=== PATIENT | male | born 1940 | race Caucasian/White ===

== ENCOUNTER → 2018-02-04 | Outpatient (CLI) | payer OTHER ==
[~2018-02-04] MED LIST: DOXA1TAB88 PO; LORA10TA44 PO; MULTTAB PO; PRED-301 PO; RANI150T3 PO; SYN50 PO; TEST1DIS TD
== END | disposition home or self-care (01) ==
LOC: C.MAMM 12:45
PROVIDERS: ATTEND Internal Medicine Endocrinology, Diabetes & Metabolism
DX: M85.852 Other specified disorders of bone density and structure, left thigh (principal); E23.0 Hypopituitarism

== ENCOUNTER 2025-04-20 07:54 | Inpatient (IN) ==
[2025-04-20 08:23] LABS: Hematocrit (blood only) 44.0 % (42.0-52.0); Hemoglobin 14.9 g/dl (14.0-18.0); Immature Granulocytes # (auto) 0.23 K/uL (0.01-0.20); Immature Granulocytes % (auto) 2.3 %; Mean Corpuscular Hemoglobin 30.1 pg (25.0-34.0); Mean Corpuscular Volume 88.9 fL (80.0-100.0); Platelet Count 136 K/uL (130-400); RDW Standard Deviation 43.2 fL (36.4-46.3); Red Blood Count 4.95 M/uL (4.70-6.10); White Blood Count 10.14 K/ul (4.8-10.8)
--- NOTE | 2025-04-20 08:48 | XRay Report ---
XR chest 1V portable CLINICAL HISTORY: Sepsis COMPARISON STUDY: 07/27/2024 FINDINGS: Heart size and pulmonary vasculature are normal. No consolidation or pleural effusion. No p neumothorax. IMPRESSION: No acute findings. ACT 112: Negative or not required by law. Electronically signed by: Adriano Glass M.D. 04/20/2025 8:47 AM
[2025-04-20] MEDS: SODIUM CHLORIDE 0.9% 1,000 ML IV SCH ×2 (08:56→13:11)
[2025-04-20 08:58] LABS: Anion Gap 9.0 (3-11); Bilirubin,Total 2.2 mg/dl (0.2-1.0); Calcium 8.4 mg/dl (8.6-10.3); Carbon Dioxide 25.0 mmol/L (21-32); Chloride 98.0 mmol/L (98-107); Magnesium 1.8 mg/dl (1.7-2.4); Potassium 3.7 mmol/L (3.5-5.1); Sodium 132.0 mmol/L (136-145)
[2025-04-20 09:04] LABS: Alanine Aminotransferase 16.0 U/L (7-52); Alkaline Phosphatase 38.0 U/L (34-104); Blood Urea Nitrogen 16.0 mg/dl (6-23); Creatinine Clr Calc Pharmacy 41.5 ml/min; Glucose 80.0 mg/dl (70-99(Fasting)); Total Protein 5.6 gm/dl (6.0-8.3)
--- NOTE | 2025-04-20 09:10 | Emergency Department Note ---
Impression & Plan Weakness, Dehydration, Upper respiratory infection ED Provider Note NAME: ISABEL JONES AGE: 85 SEX: M : 1940 ARRIVES VIA: Ambulance INFORMANT: Patient, ED PROVIDER(S): Rah West MD CHIEF COMPLAINT: COVID-19, lethargy, confusion HPI: This is a 85-year-old male presenting for confusion, lethargy. Patient recent has positive for COVID-19 on Saturday. He started Paxlovid recently. He cannot tell me if he was prescribed this or has taken his 's. He has increasing confusion as per nursing report. Cannot provide much history at this time. ROS: Unable to obtain. PHYSICAL EXAMINATION: General: resting comfortably in no acute distress Head: Normocephalic and atraumatic Eyes: Normal inspection, extraocular muscles intact Ear, nose, throat: Normal external exam Neck: Normal range of motion Respiratory: lungs clear to auscultation bilaterally Cardiovascular: Regular rate/rhythm GI: soft, nontender, no guarding or rebound Extremities: nontender, moves all extremities Neuro: The patient awake and alert, not oriented. No focal deficits, symmetric faces Skin: Warm, dry, and intact MEDICAL DECISION MAKING: This is an 85-year-old male present for confusion and lethargy. He does not appear outwardly septic, no hypotension. Slight tachycardia initially noted. Will do basic blood work, urinalysis, fluid resuscitation. - Bloodwork is reviewed showing no significant leukocytosis, anemia, electrolyte or creatinine abnormality. Minimal hyponatremia noted. Otherwise no lactic acid elevation. Negative procalcitonin. -Chest Xray independently interpreted by me showing no pneumothorax, focal opacity, or pleural effusions. - Patient slightly more awake after fluids. Still confused however and significantly weak, unable to ambulate. Will admit the patient due to suspected dehydration, weakness due to COVID-19. Differential diagnosis: Dehydration, weakness, COVID-19, pneumonia, sepsis, UTI Independent History obtained from: Nurse Diagnostics interpreted by me: ECG: ECG independently interpreted by me with normal sinus rhythm, rate of 100, normal TN], normal QRS, normal QTc, no ST segment elevations consistent with STEMI criteria Cardiac Monitoring: An order was placed for continuous cardiac monitoring. The monitor shows a rate of 88 with sinus rhythm. 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) GERD (gastroesophageal reflux disease) (Chronic) Panhypopituitarism (Chronic) "benign pituitary cyst resected 1996" History of adenomatous polyp of colon (Chronic) Chronic kidney disease, stage 3 (Chronic) "serum creat 1.5, est GFR 47 02/24/14" Medical History CVA (cerebral vascular accident) Neuropathy In both feet Allergic rhinitis Macular drusen Right eye Esophagitis Diastolic dysfunction BPH (benign prostatic hyperplasia) Surgical History H/O vitrectomy History of surgical removal of pituitary gland Benign cyst S/P colonoscopy Family History Mother , 78yo Heart disease Related to "strept" infection CHF (congestive heart failure) Stroke Father , 82yo Colorectal cancer Brother Blindness of one eye Prostate cancer Brother Prostate cancer Daughter No problems noted. 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 How many Children do You have: 1 Feels Safe at Home: Yes Diet: regular caffeine: Yes (1 cup/day) during the past year weight has: remained stable Assistive Devices: Glasses Allergies Allergies Allergy/AdvReac Type Severity Reaction Status Date / Time eugenol Allergy Unknown unkn Verified 04/20/25 09:25 zinc oxide Allergy Unknown unkn Verified 04/20/25 09:25 Home Meds Home Medications Medication Instructions Recorded Confirmed calcium carbonate 500 mg PO DAILY PRN Acid Reflux 11/27/22 04/20/25 aspirin 81 mg tablet,delayed 81 mg PO BID PRN Pain 06/12/23 04/20/25 release loratadine 10 mg tablet 10 mg PO QAM PRN allergies 06/12/23 04/20/25 levothyroxine 100 mcg tablet 100 mcg PO QAM 02/12/24 04/20/25 testosterone 1 pump topical HS 03/14/24 04/20/25 cholecalciferol (vitamin D3) 50 2,000 unit PO DAILY 10/30/24 04/20/25 mcg (2,000 unit) capsule nirmatrelvir 150 mg (10)-ritonavir See Rx Instructions .Route .COMPLEX 04/20/25 04/20/25 100 mg (10) tablets in a dose pack (Paxlovid) Previous Rx's Medication Instructions Recorded prednisone 5 mg tablet 7.5 mg (1.5 x 5 mg) PO QAM #135 03/29/25 tabs Results & Data (ED) Vital Signs Vital Signs - 24 hr 04/20/25 08:14 04/20/25 08:30 04/20/25 08:38 Temperature 36.9 C Temperature Source Oral Pulse Rate 102 H 95 H 98 H Pulse Rate from SpO2 Sensor Respiratory Rate 18 22 Respiratory Effort / Characteristics Non-Labored Spontaneous Respiratory Depth Normal Respiratory Pattern Regular Blood Pressure 147/84 H 136/83 Blood Pressure Mean 105 114 Pulse Oximetry 96 95 Oxygen Delivery Method Room Air Room Air Sepsis Recent Fever Within 48 Hours Yes Sepsis New/Unexplained Change in Mental Status Yes Sepsis Action Taken by Nursing Physician Notified 04/20/25 09:00 04/20/25 09:06 04/20/25 09:17 Temperature Temperature Source Pulse Rate 96 H 90 91 H Pulse Rate from SpO2 Sensor Respiratory Rate 21 21 20 Respiratory Effort / Characteristics Respiratory Depth Respiratory Pattern Blood Pressure 139/80 135/102 H Blood Pressure Mean 105 109 Pulse Oximetry 96 97 Oxygen Delivery Method Room Air Sepsis Recent Fever Within 48 Hours Sepsis New/Unexplained Change in Mental Status Sepsis Action Taken by Nursing 04/20/25 09:30 04/20/25 09:45 Temperature Temperature Source Pulse Rate 99 H 88 Pulse Rate from SpO2 Sensor 88 Respiratory Rate 15 18 Respiratory Effort / Characteristics Respiratory Depth Respiratory Pattern Blood Pressure 133/77 135/83 Blood Pressure Mean 111 121 Pulse Oximetry 96 94 Oxygen Delivery Method Sepsis Recent Fever Within 48 Hours Sepsis New/Unexplained Change in Mental Status Sepsis Action Taken by Nursing Laboratory Data 04/20/25 08:06 04/20/25 08:06 Lab Results 04/20/25 04/20/25 04/20/25 Range/Units 08:06 08:10 08:55 WBC 10.14 (4.8-10.8) K/ul RBC 4.95 (4.70-6.10) M/uL Hgb 14.9 (14.0-18.0) g/dl Hct 44.0 (42.0-52.0) % MCV 88.9 (80.0-100.0) fL MCH 30.1 (25.0-34.0) pg MCHC 33.9 (32.0-36.0) g/dL RDW Std Deviation 43.2 (36.4-46.3) fL RDW Coeff of Dio 13.4 (11.5-14.5) % Plt Count 136 (130-400) K/uL MPV 9.5 (9.4-12.4) fL Immature Gran % (Auto) 2.3 % Neut % (Auto) 72.0 % Lymph % (Auto) 11.6 % Keith % (Auto) 11.5 % Eos % (Auto) 1.7 % Baso % (Auto) 0.9 % Neut # (Auto) 7.30 H (1.40-6.50) K/uL Lymph # (Auto) 1.18 L (1.20-3.40) K/uL Keith # (Auto) 1.17 H (0.11-0.59) K/uL Eos # (Auto) 0.17 (0.00-0.50) K/uL Baso # (Auto) 0.09 (0.00-0.20) K/uL Immature Gran # (Auto) 0.23 H (0.01-0.20) K/uL Sodium 132 L (136-145) mmol/L Potassium 3.7 (3.5-5.1) mmol/L Chloride 98 (98-107) mmol/L Carbon Dioxide 25 (21-32) mmol/L Anion Gap 9 (3-11) BUN 16 (6-23) mg/dl Creatinine 1.20 (0.6-1.4) mg/dl Est Cr Clr Drug Dosing 41.5 ml/min eGFR 59.26 BUN/Creatinine Ratio 13.3 (10-20) Glucose 80 (70-99(Fasting)) mg/dl POC Glucose 73 (70-99) mg/dl Lactate 1.6 (0.4-2.0) mmol/L Calcium 8.4 L (8.6-10.3) mg/dl Magnesium 1.8 (1.7-2.4) mg/dl Total Bilirubin 2.2 H (0.2-1.0) mg/dl Direct Bilirubin 0.4 H (0-0.2) mg/dl AST 21 (13-39) U/L ALT 16 (7-52) U/L Alkaline Phosphatase 38 (34-104) U/L Troponin I High Sens 7.4 (0-20) pg/ml Total Protein 5.6 L (6.0-8.3) gm/dl Albumin 3.3 L (3.4-5.0) gm/dl Procalcitonin 0.34 (0-0.5) ng/ml TSH < 0.010 L (0.300-4.500) uIu/ml Random Cortisol 4.81 mcg/dl Urine Color Urine Appearance (Clear) Urine pH (4.5-7.5) Ur Specific Landenberg (1.000-1.030) Urine Protein (Negative) Urine Glucose (UA) (Negative) Urine Ketones (Negative) Urine Blood (Negative) Urine Nitrite (Negative) Urine Bilirubin (Negative) Urine Urobilinogen (Negative) Ur Leukocyte Esterase (Negative) Urine Comment 04/20/25 Range/Units 09:24 WBC (4.8-10.8) K/ul RBC (4.70-6.10) M/uL Hgb (14.0-18.0) g/dl Hct (42.0-52.0) % MCV (80.0-100.0) fL MCH (25.0-34.0) pg MCHC (32.0-36.0) g/dL RDW Std Deviation (36.4-46.3) fL RDW Coeff of Dio (11.5-14.5) % Plt Count (130-400) K/uL MPV (9.4-12.4) fL Immature Gran % (Auto) % Neut % (Auto) % Lymph % (Auto) % Keith % (Auto) % Eos % (Auto) % Baso % (Auto) % Neut # (Auto) (1.40-6.50) K/uL Lymph # (Auto) (1.20-3.40) K/uL Keith # (Auto) (0.11-0.59) K/uL Eos # (Auto) (0.00-0.50) K/uL Baso # (Auto) (0.00-0.20) K/uL Immature Gran # (Auto) (0.01-0.20) K/uL Sodium (136-145) mmol/L Potassium (3.5-5.1) mmol/L Chloride (98-107) mmol/L Carbon Dioxide (21-32) mmol/L Anion Gap (3-11) BUN (6-23) mg/dl Creatinine (0.6-1.4) mg/dl Est Cr Clr Drug Dosing ml/min eGFR BUN/Creatinine Ratio (10-20) Glucose (70-99(Fasting)) mg/dl POC Glucose (70-99) mg/dl Lactate (0.4-2.0) mmol/L Calcium (8.6-10.3) mg/dl Magnesium (1.7-2.4) mg/dl Total Bilirubin (0.2-1.0) mg/dl Direct Bilirubin (0-0.2) mg/dl AST (13-39) U/L ALT (7-52) U/L Alkaline Phosphatase (34-104) U/L Troponin I High Sens (0-20) pg/ml Total Protein (6.0-8.3) gm/dl Albumin (3.4-5.0) gm/dl Procalcitonin (0-0.5) ng/ml TSH (0.300-4.500) uIu/ml Random Cortisol mcg/dl Urine Color Yellow Urine Appearance Clear (Clear) Urine pH 6.0 (4.5-7.5) Ur Specific Landenberg 1.016 (1.000-1.030) Urine Protein Negative (Negative) Urine Glucose (UA) Negative (Negative) Urine Ketones 2+ H (Negative) Urine Blood Negative (Negative) Urine Nitrite Negative (Negative) Urine Bilirubin Negative (Negative) Urine Urobilinogen Negative (Negative) Ur Leukocyte Esterase Negative (Negative) Urine Comment Administered Medications Sodium Chloride (Nss) 1,000 mls @ 80 mls/hr IV .[id number] EDITH Stop: 04/21/25 12:29 Last Admin: 04/20/25 13:11 Dose: 80 mls/hr Documented By: mani Discontinued Medications Hydrocortisone Sodium Succinate (Hydrocortisone Sod Succinate 100 Mg/2 Ml Vial) 50 mg IV NOW STA Stop: 04/20/25 12:05 Last Admin: 04/20/25 13:11 Dose: 50 mg Documented By: mani Sodium Chloride (Nss) 1,000 mls @ 999 mls/hr IV .Q1H1M EDITH Stop: 04/20/25 09:15 Last Infusion: 04/20/25 10:32 Dose: Infused Documented By: mani Admin: 04/20/25 08:56 Dose: 999 mls/hr Documented By: ABIGAIL Imaging Data Radiologist's Impression: Chest X-Ray 04/20/25 08:09 XR chest 1V portable CLINICAL HISTORY: Sepsis COMPARISON STUDY: 07/27/2024 FINDINGS: Heart size and pulmonary vasculature are normal. No consolidation or pleural effusion. No pneumothorax. IMPRESSION: No acute findings. ACT 112: Negative or not required by law. Electronically signed by: Adriano Glass M.D. 04/20/2025 8:47 AM Discharge Plan Visit Data Chief Complaint: Illness ED Provider: Rah West Discharge Problem: Weakness, Dehydration, Upper respiratory infection Patient Disposition: Admitted As Inpatient Condition: Fair Discharge Instructions Interventions: ED Discharge Assessment Last Done: 04/20/25 14:07 Discharge Problem: Upper respiratory infection Qualifiers: URI type: unspecified URI Qualified Code(s): J06.9 - Acute upper respiratory infection, unspecified
[2025-04-20 09:55] LABS: Appearance Urine Clear (Clear); Glucose Urine UA Negative (Negative)
[2025-04-20 13:02] LABS: Thyroid Stimulating Hormone < 0.010 uIu/ml (0.300-4.500)
--- NOTE | 2025-04-20 13:06 | History & Physical Report ---
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 #Metabolic encephalopathy 2/2 covid, dehydration and adrenal insuff #Sars COV-2 positive (outpt home test on 04/18 +) #Adrenal insufficiency in setting of underlying illness and chronic pred therapy #Dehydration #Generalized weakness admit to medical stop oral paxlovid and start IV remdesivir given age hold oral prednisone and start stress dose steroid hydrocortisone 50mg IV q8, random cortisol at 8:06 a.m. was low at 4.81 gentle IVF can reassess need for further fluid tomorrow PT/OT ordered Head CT given encephalopathy #Hypothyroidism #PanHypopituitarism TSH < 0.01, free T4 w/in range - will need repeat testing when not ill in appox 2 weeks after discharge continue levothyroxine, testosterone and IV hydrocortisone #acute hyponatremia na 132, suspect in setting of volume completion IVF ongoing, bmp in am. #CKD-3 chronic, stable, cr at baseline 1.2, avoid nephrotoxic agents #Mild protein calorie malnutrition consult filer helper #DVT ppx: SQ Lovenox DNR/DNI Dispo: admit to medical PCP: Jerry Pt was seen by Dr. Mehta and collaborated with myself, please refer to his addendum I spent a total of 50 minutes coordinating, documenting and providing care for this patient excluding time spent in the performance of separately billed services or time spent by another provider/QHP. History of Present Illness Chief Complaint: lethargy and confusion x 1 day. Primary Care Provider: Rodolfo Edwards MD This is an 85-year-old male who has significant past medical history of pa nhypopituitarism on chronic prednisone therapy, hypothyroidism, CKD stage III, history of prostate cancer, MGUS who presents today due to worsening lethargy and confusion x 1 day. Of significance patient's tested positive for for COVID and was started on Paxlovid. Patient then developed symptoms of headache, cough, decreased appetite and he tested positive on a home test on 04/18. His PCP started Paxlovid as well and was administered 3 doses. History obtained from ED provider, external chart review and attending physician discussion with patient's . Hx unobtainable from patient due to confusion. Allergies Allergy/AdvReac Type Severity Reaction Status Date / Time eugenol Allergy Unknown unkn Verified 04/20/25 09:25 zinc oxide Allergy Unknown unkn Verified 04/20/25 09:25 Home Medications Medication Instructions Recorded Confirmed Type calcium carbonate 500 mg PO DAILY PRN Acid Reflux 11/27/22 04/20/25 History aspirin 81 mg tablet,delayed 81 mg PO BID PRN Pain 06/12/23 04/20/25 History release loratadine 10 mg tablet 10 mg PO QAM PRN allergies 06/12/23 04/20/25 History levothyroxine 100 mcg tablet 100 mcg PO QAM 02/12/24 04/20/25 History testosterone 1 pump topical HS 03/14/24 04/20/25 History cholecalciferol (vitamin D3) 50 2,000 unit PO DAILY 10/30/24 04/20/25 History mcg (2,000 unit) capsule prednisone 5 mg tablet 7.5 mg (1.5 x 5 mg) PO QAM #135 03/29/25 04/20/25 Rx tabs nirmatrelvir 150 mg (10)-ritonavir See Rx Instructions .Route .COMPLEX 04/20/25 04/20/25 History 100 mg (10) tablets in a dose pack (Paxlovid) 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) GERD (gastroesophageal reflux disease) (Chronic) Panhypopituitarism (Chronic) "benign pituitary cyst resected 1996" History of adenomatous polyp of colon (Chronic) Chronic kidney disease, stage 3 (Chronic) "serum creat 1.5, est GFR 47 02/24/14" Medical History CVA (cerebral vascular accident) Neuropathy In both feet Allergic rhinitis Macular drusen Right eye Esophagitis Diastolic dysfunction BPH (benign prostatic hyperplasia) Surgical History H/O vitrectomy History of surgical removal of pituitary gland Benign cyst S/P colonoscopy Family History Mother , 78yo Heart disease Related to "strept" infection CHF (congestive heart failure) Stroke Father , 82yo Colorectal cancer Brother Blindness of one eye Prostate cancer Brother Prostate cancer Daughter No problems noted. 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 Mehta addendum for physical exam findings. Results & Data Results & Data Vital Signs (Past 12 Hours) Vital Signs Temp Pulse Resp BP Pulse Ox O2 Del Method 04/20/25 09:45 88 18 135/83 94 04/20/25 09:30 99 H 15 133/77 96 04/20/25 09:17 91 H 20 135/102 H 97 04/20/25 09:06 90 21 96 Room Air 04/20/25 09:00 96 H 21 139/80 04/20/25 08:38 98 H 04/20/25 08:30 95 H 22 136/83 95 Room Air 04/20/25 08:14 36.9 C 102 H 18 147/84 H 96 Room Air Laboratory Results I have independently reviewed and interpreted patient's admitting labs including CBC, CMP, trop, lactate, tsh, random cortisol, urine, biofire Diagnostic Findings Chest X-Ray 04/20/25 08:09 XR chest 1V portable CLINICAL HISTORY: Sepsis COMPARISON STUDY: 07/27/2024 FINDINGS: Heart size and pulmonary vasculature are normal. No consolidation or pleural effusion. No pneumothorax. IMPRESSION: No acute findings. ACT 112: Negative or not required by law. Electronically signed by: Adriano Glass M.D. 04/20/2025 8:47 AM Medications Administered Medication List Discontinued Medications Sodium Chloride (Nss) 1,000 mls @ 999 mls/hr IV .Q1H1M EDITH Stop: 04/20/25 09:15 Last Infusion: 04/20/25 10:32 Dose: Infused Documented By: mani Admin: 04/20/25 08:56 Dose: 999 mls/hr Documented By: ABIGAIL ECG Additional Comments: I have independently reviewed and interpreted patient's admitting EKG which revealed: COVID-19 Results Results COVID-19 Adm Lab Results: RBC 4.94 M/uL (4.70-6.10) 04/21/25 WBC 7.94 K/ul (4.8-10.8) 04/21/25 Hgb 14.8 g/dl (14.0-18.0) 04/21/25 Hct 43.9 % (42.0-52.0) 04/21/25 Plt Count 165 K/uL (130-400) 04/21/25 Neutrophils (%) (Auto) 82.8 % 04/21/25 Lymphocytes (%) (Auto) 8.3 % 04/21/25 Monocytes # (Auto) 0.51 K/uL (0.11-0.59) 04/21/25 Eosinophils # (Auto) 0.02 K/uL (0.00-0.50) 04/21/25 Immature Granulocyte % (Auto) 1.8 % 04/21/25 Neutrophils # (Auto) 6.58 K/uL (1.40-6.50) H 04/21/25 Lymphocytes # (Auto) 0.66 K/uL (1.20-3.40) L 04/21/25 Monocytes # (Auto) 0.51 K/uL (0.11-0.59) 04/21/25 Eosinophils # (Auto) 0.02 K/uL (0.00-0.50) 04/21/25 Basophils # (Auto) 0.03 K/uL (0.00-0.20) 04/21/25 Immature Granulocyte # (Auto) 0.14 K/uL (0.01-0.20) 5 Na 132 mmol/L (136-145) L 04/20/25 K 3.7 mmol/L (3.5-5.1) 04/20/25 Cl 98 mmol/L (98-107) 04/20/25 CO2 25 mmol/L (21-32) 04/20/25 Anion Gap 9 (3-11) 04/20/25 BUN 16 mg/dl (6-23) 04/20/25 Creatinine 1.20 mg/dl (0.6-1.4) 04/20/25 BUN/Creatinine Ratio 13.3 (10-20) 04/20/25 Glucose Level 80 mg/dl (70-99(Fasting)) 04/20/25 Ca 8.4 mg/dl (8.6-10.3) L 04/20/25 Total Bilirubin 2.2 mg/dl (0.2-1.0) H 04/20/25 Direct Bilirubin 0.4 mg/dl (0-0.2) H 04/20/25 AST/SGOT 21 U/L (13-39) 04/20/25 ALT/SGPT 16 U/L (7-52) 04/20/25 Alkaline Phosphatase 38 U/L (34-104) 04/20/25 Total Protein 5.6 gm/dl (6.0-8.3) L 04/20/25 Albumin 3.3 gm/dl (3.4-5.0) L 04/20/25 Globulin Pending 04/21/25 Albumin/Globulin Ratio Pending 04/21/25 Procalcitonin 0.34 ng/ml (0-0.5) 04/20/25 Adenovirus (PCR) Not Detected (NotDetected) 04/20/25 B. parapertussis DNA (PCR) Not Detected (NotDetected) 03/24 06/17 B. pertussis DNA (PCR) Not Detected (NotDetected) 04/20/25 C. pneumoniae DNA (PCR) Not Detected (NotDetected) 5 Coronavirus Type OC43 (PCR) Not Detected (NotDetected) Coronavirus Type HKU1 (PCR) Not Detected (NotDetected) Coronavirus Type 229E (PCR) Not Detected (NotDetected) COVID-19 PCR DETECTED (NotDetected) A 04/20/25 Coronavirus Type NL63 (PCR) Not Detected (NotDetected) Human Metapneumovirus (PCR) Not Detected (NotDetected) Influenza Virus Type A (PCR) Not Detected (NotDetected) Influenza Virus Type B (PCR) Not Detected (NotDetected) M. pneumoniae (PCR) Not Detected (NotDetected) 04/20/25 Parainfluenza Type 1 (PCR) Not Detected (NotDetected) 03/24 06/17 Parainfluenza Type 2 (PCR) Not Detected (NotDetected) 03/24 06/17 Parainfluenza Type 3 (PCR) Not Detected (NotDetected) 03/24 06/17 Parainfluenza Type 4 (PCR) Not Detected (NotDetected) 03/24 06/17 RSV (PCR) Not Detected (NotDetected) 04/20/25 Enterovirus/Rhinovirus (PCR) Not Detected (NotDetected) Chest X-Ray 04/20/25 Code Status & VTE Plan Code Status FULL CODE VTE Prophylaxis Plan VTE Prophylaxis will be ordered: Yes Supervising Physician Co-Signing Physician Notes Attending Addendum: Case reviewed with the advanced practitioner. I have personally performed a history and physical examination on the patient. I have reviewed the advanced practitioner's documentation on the date of service referenced in note, and I agree with, and take responsibility for the plan of care. please refer to her notes for full details patient seen and examined, records reviewed by myself as well on exam, patient seen resting in bed, not in distress appears somewhat confused, but oriented x 2 states he feels tired, weak, has occasional cough denies shortness of breath, chest pain, abdominal pain, nausea, diarrhea, problems with urination history obtained from patient's over the phone symptoms started last Saturday- cough, runny nose, body aches which progressed to weakness, poor appetite Paxlovid started by PCP 2 days prior to admission, patient seemed to have gotten worse no other symptoms VS noted and reviewed oriented x 2 ,weak, needing 2 RNs to assist him in using the urinal, not in distress, speaks in sentences with no effort nor accessory muscle use normal rate, regular rhythm, no murmurs clear breath sounds bilaterally non distended, soft, nontender no bipedal edema, erythema, warmth no neuro deficits all labs, imaging noted and reviewed ASSESSMENT AND PLAN> GENERALIZED WEAKNESS MILD ENCEPHALOPATHY SECONDARY TO COVID 19 INFECTION UNDERLYING ADRENAL INSUFFICIENCY, ON CHRONIC PREDNISONE FOR PANHYPOPITUITARISM on room air CXR no pneumonia cortisol 4 ff up cultures IV Remdesivir stress dose IV Hydrocortisone, then taper (hold usual prednisone 7.5mg po daily) IV fluids supportive care monitor closely plan of care discussed with patient's Mira over the phone in detail and at length all questions answered she is understanding, agreeable, comfortable with the plan of care other diagnoses and plan of care as per advanced practitioner's notes I spent a total of 60 minutes coordinating, documenting, and providing care for this patient, excluding time spent in the performance of separately billed services or time spent by another provider/QHP. Lb Mehta MD
--- NOTE | 2025-04-20 13:06 | CT Scan Report ---
CT head/brain wo con CLINICAL HISTORY: confusion. TECHNIQUE: Multiple axial CT images of the head were obtained without contrast. A dose lowering tech nique was utilized adhering to the principles of ALARA. CT DOSE: 663.26 mGy.cm COMPARISON: 03/14/2024 FINDINGS: No intracranial hemorrhage seen. No mass effect or midline shift. There is stable mild prom inence of the ventricles out of proportion to sulci, cerebral atrophy versus normal pressure hydrocep halus. Stable mild chronic small vessel ischemic changes. There is mucosal thickening at the sphenoid and ethmoid sinuses. No mastoid effusion. No skull fracture seen. IMPRESSION: No acute findings. ACT 112: Negative or not required by law. The above report was generated using voice recognition software. It may contain grammatical, syntax o r spelling errors. Electronically signed by: Adriano Glass M.D. 04/20/2025 1:05 PM
[2025-04-20 13:10] LABS: Chlamydia pneumoniae PCR Not Detected (NotDetected); Coronavirus 229E PCR Not Detected (NotDetected); Coronavirus CoV-2 (COVID19)PCR DETECTED (NotDetected); Coronavirus HKU1 PCR Not Detected (NotDetected); Coronavirus NL63 PCR Not Detected (NotDetected); Coronavirus OC43PCR Not Detected (NotDetected); Human Metapneumovirus PCR Not Detected (NotDetected); Parainfluenza Virus 1 PCR Not Detected (NotDetected); Parainfluenza Virus 2 PCR Not Detected (NotDetected); Parainfluenza Virus 3 PCR Not Detected (NotDetected); Parainfluenza Virus 4 PCR Not Detected (NotDetected); Respiratory Syncytial VirusPCR Not Detected (NotDetected); Rhinovirus/Enterovirus PCR Not Detected (NotDetected)
[2025-04-20] MEDS: HYDROCORTISONE SOD SUCCINATE 100 MG/2 ML VIAL IV STA (13:11)
[2025-04-20] MEDS ORDERED: FAMOTIDINE 20 MG TAB PO PRN (14:07)
[2025-04-20] MEDS ORDERED: ONDANSETRON INJ 2 MG/ML 2 ML VIAL IV PRN (14:07)
[2025-04-20] MEDS ORDERED: ACETAMINOPHEN 325 MG TAB PO PRN (14:07)
[2025-04-20] MEDS ORDERED: POLYETHYLENE (MIRALAX) 17 GM PACK PO PRN (14:07)
[2025-04-20] MEDS ORDERED: ALUMINUM/MAGNESIUM SUSP 30 ML UDC PO PRN (14:07)
[2025-04-20] MEDS: REMDESIVIR 200 MG in SODIUM CHLORIDE 0.9% 210 ML IV STA (16:04)
[2025-04-20] MEDS ORDERED: HYDROCORTISONE SOD SUCCINATE 100 MG/2 ML VIAL IV SCH (20:00)
[2025-04-20] MEDS: HYDROCORTISONE SOD 50 MG in SYRINGE 0 ML IV SCH (20:01)
[2025-04-20] MEDS: ENOXAPARIN INJ 40 MG/0.4 ML SYR SQ SCH (20:01)
[2025-04-21] MEDS: LEVOTHYROXINE SODIUM 100 MCG TABLET PO SCH (05:25)
[2025-04-21 06:21] LABS: Hematocrit (blood only) 43.9 % (42.0-52.0); Hemoglobin 14.8 g/dl (14.0-18.0); Immature Granulocytes # (auto) 0.14 K/uL (0.01-0.20); Immature Granulocytes % (auto) 1.8 %; Mean Corpuscular Hemoglobin 30.0 pg (25.0-34.0); Mean Corpuscular Volume 88.9 fL (80.0-100.0); Platelet Count 165 K/uL (130-400); RDW Standard Deviation 42.6 fL (36.4-46.3); Red Blood Count 4.94 M/uL (4.70-6.10); White Blood Count 7.94 K/ul (4.8-10.8)
[2025-04-21 06:58] LABS: Alanine Aminotransferase 16.0 U/L (7-52); Albumin Globulin Ratio 1.4 (0.9-2); Alkaline Phosphatase 36.0 U/L (34-104); Anion Gap 9.0 (3-11); Bilirubin,Total 0.9 mg/dl (0.2-1.0); Blood Urea Nitrogen 18.0 mg/dl (6-23); Calcium 8.2 mg/dl (8.6-10.3); Carbon Dioxide 24.0 mmol/L (21-32); Chloride 106.0 mmol/L (98-107); Creatinine Clr Calc Pharmacy 51.9 ml/min; Globulin 2.3 gm/dl (2.5-4.0); Glucose 94.0 mg/dl (70-99(Fasting)); Magnesium 2.1 mg/dl (1.7-2.4); Potassium 4.2 mmol/L (3.5-5.1); Sodium 139.0 mmol/L (136-145); Total Protein 5.5 gm/dl (6.0-8.3)
--- NOTE | 2025-04-21 07:41 | Hospitalist Progress Note ---
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 Metabolic encephalopathy 2/2 covid, dehydration and adrenal insuff Sars COV-2 positive (outpt home test on 04/18 +) Adrenal insufficiency in setting of underlying illness and chronic pred therapy Dehydration Generalized weakness admitted to medical stopped oral paxlovid and started IV remdesivir on admission given age held oral prednisone and started stress dose steroid hydrocortisone 50mg IV q8, random cortisol at 8:06 a.m. was low at 4.81 received gentle IVF PT/OT ordered Head CT given encephalopathy - negative Hypothyroidism PanHypopituitarism TSH < 0.01, free T4 w/in range - will need repeat testing when not ill in appox 2 weeks after discharge continue levothyroxine, testosterone and IV hydrocortisone Acute hyponatremia Na 132, suspect in setting of volume completion IVF given on admission, current Na 139 CKD-3 chronic, stable, Cr at baseline 1.2, avoid nephrotoxic agents Mild protein calorie malnutrition consult geographic information system surveyor DVT ppx: SQ Lovenox DNR/DNI Dispo: med/surg PCP: Dr. Edwards Admission and Anticipated Discharge Date Admission Date: April 20, 2025 Subjective Pt seen in follow up of confusion and + COVID Currently pt is sitting up in chair in NAD, eating He is on RA and appears comfortable Denies any fever, chills, chest pain, shortness of breath or cough. denies any abd.pain. When I ask him about yesterday he does not know much about what happened prior to him coming to the hospital and tells me to ask his instead. Review of Systems Review of Systems: All systems reviewed & are unremarkable except as noted in Subjective Physical Exam Physical Exam: General : WD/WN elderly M in NAD. oriented x 2 CV: normal rate, regular rhythm, no murmurs Respiratory: clear breath sounds bilaterally Abdomen: non distended, soft, nontender LEs: no bipedal edema, erythema, warmth Neuro: speech fluent, no facial asymmetry, moves extremities, able to answer some questions appropriately but does not remember much of yesterday Results & Data Results & Data Vital Signs (Past 12 Hours) Vital Signs Temp Pulse Resp BP Pulse Ox O2 Del Method 04/21/25 07:08 36.5 C 111 H 18 124/84 95 Room Air Laboratory Results 04/21/25 04/20/25 04/20/25 Range/Units 05:31 11:47 11:42 WBC 7.94 (4.8-10.8) K/ul RBC 4.94 (4.70-6.10) M/uL Hgb 14.8 (14.0-18.0) g/dl Hct 43.9 (42.0-52.0) % MCV 88.9 (80.0-100.0) fL MCH 30.0 (25.0-34.0) pg MCHC 33.7 (32.0-36.0) g/dL RDW Std Deviation 42.6 (36.4-46.3) fL RDW Coeff of Dio 13.2 (11.5-14.5) % Plt Count 165 (130-400) K/uL MPV 10.1 (9.4-12.4) fL Immature Gran % (Auto) 1.8 % Neut % (Auto) 82.8 % Lymph % (Auto) 8.3 % [place] % (Auto) 6.4 % Eos % (Auto) 0.3 % Baso % (Auto) 0.4 % Neut # (Auto) 6.58 H (1.40-6.50) K/uL Lymph # (Auto) 0.66 L (1.20-3.40) K/uL [place] # (Auto) 0.51 (0.11-0.59) K/uL Eos # (Auto) 0.02 (0.00-0.50) K/uL Baso # (Auto) 0.03 (0.00-0.20) K/uL Immature Gran # (Auto) 0.14 (0.01-0.20) K/uL Sodium 139 (136-145) mmol/L Potassium 4.2 (3.5-5.1) mmol/L Chloride 106 (98-107) mmol/L Carbon Dioxide 24 (21-32) mmol/L Anion Gap 9 (3-11) BUN 18 (6-23) mg/dl Creatinine 0.96 (0.6-1.4) mg/dl Est Cr Clr Drug Dosing 51.9 ml/min eGFR 77.46 BUN/Creatinine Ratio 18.8 (10-20) Glucose 94 (70-99(Fasting)) mg/dl POC Glucose (70-99) mg/dl Lactate (0.4-2.0) mmol/L Calcium 8.2 L (8.6-10.3) mg/dl Magnesium 2.1 (1.7-2.4) mg/dl Total Bilirubin 0.9 D (0.2-1.0) mg/dl Direct Bilirubin (0-0.2) mg/dl AST 25 (13-39) U/L ALT 16 (7-52) U/L Alkaline Phosphatase 36 (34-104) U/L Troponin I High Sens (0-20) pg/ml Total Protein 5.5 L (6.0-8.3) gm/dl Albumin 3.2 L (3.4-5.0) gm/dl Globulin 2.3 L (2.5-4.0) gm/dl Albumin/Globulin Ratio 1.4 (0.9-2) Procalcitonin (0-0.5) ng/ml TSH (0.300-4.500) uIu/ml Free T4 (0.61-1.60) ng/dl Random Cortisol mcg/dl Urine Color Urine Appearance (Clear) Urine pH (4.5-7.5) Ur Specific [place] (1.000-1.030) Urine Protein (Negative) Urine Glucose (UA) (Negative) Urine Ketones (Negative) Urine Blood (Negative) Urine Nitrite (Negative) Urine Bilirubin (Negative) Urine Urobilinogen (Negative) Ur Leukocyte Esterase (Negative) Urine Comment Nasal Screen MRSA (PCR) Negative (Negative) Adenovirus (PCR) Not Detected (NotDetected) B. pertussis DNA (PCR) Not Detected (NotDetected) B.parapertussis DNA PCR Not Detected (NotDetected) C. pneumoniae DNA (PCR) Not Detected (NotDetected) Coronavirus OC43 (PCR) Not Detected (NotDetected) Coronavirus HKU1 (PCR) Not Detected (NotDetected) Coronavirus 229E (PCR) Not Detected (NotDetected) SARS-CoV-2 (PCR) DETECTED A (NotDetected) Coronavirus NL63 (PCR) Not Detected (NotDetected) Human Metapneumovir PCR Not Detected (NotDetected) Influenza Type A (PCR) Not Detected (NotDetected) Influenza Type B (PCR) Not Detected (NotDetected) M. pneumoniae (PCR) Not Detected (NotDetected) Parainfluenza 1 (PCR) Not Detected (NotDetected) Parainfluenza 2 (PCR) Not Detected (NotDetected) Parainfluenza 3 (PCR) Not Detected (NotDetected) Parainfluenza 4 (PCR) Not Detected (NotDetected) RSV (PCR) Not Detected (NotDetected) Entero/Rhino (PCR) Not Detected (NotDetected) 04/20/25 04/20/25 04/20/25 Range/Units 09:24 08:55 08:10 WBC (4.8-10.8) K/ul RBC (4.70-6.10) M/uL Hgb (14.0-18.0) g/dl Hct (42.0-52.0) % MCV (80.0-100.0) fL MCH (25.0-34.0) pg MCHC (32.0-36.0) g/dL RDW Std Deviation (36.4-46.3) fL RDW Coeff of Dio (11.5-14.5) % Plt Count (130-400) K/uL MPV (9.4-12.4) fL Immature Gran % (Auto) % Neut % (Auto) % Lymph % (Auto) % [place] % (Auto) % Eos % (Auto) % Baso % (Auto) % Neut # (Auto) (1.40-6.50) K/uL Lymph # (Auto) (1.20-3.40) K/uL [place] # (Auto) (0.11-0.59) K/uL Eos # (Auto) (0.00-0.50) K/uL Baso # (Auto) (0.00-0.20) K/uL Immature Gran # (Auto) (0.01-0.20) K/uL Sodium (136-145) mmol/L Potassium (3.5-5.1) mmol/L Chloride (98-107) mmol/L Carbon Dioxide (21-32) mmol/L Anion Gap (3-11) BUN (6-23) mg/dl Creatinine (0.6-1.4) mg/dl Est Cr Clr Drug Dosing ml/min eGFR BUN/Creatinine Ratio (10-20) Glucose (70-99(Fasting)) mg/dl POC Glucose 73 (70-99) mg/dl Lactate 1.6 (0.4-2.0) mmol/L Calcium (8.6-10.3) mg/dl Magnesium (1.7-2.4) mg/dl Total Bilirubin (0.2-1.0) mg/dl Direct Bilirubin (0-0.2) mg/dl AST (13-39) U/L ALT (7-52) U/L Alkaline Phosphatase (34-104) U/L Troponin I High Sens (0-20) pg/ml Total Protein (6.0-8.3) gm/dl Albumin (3.4-5.0) gm/dl Globulin (2.5-4.0) gm/dl Albumin/Globulin Ratio (0.9-2) Procalcitonin (0-0.5) ng/ml TSH (0.300-4.500) uIu/ml Free T4 (0.61-1.60) ng/dl Random Cortisol mcg/dl Urine Color Yellow Urine Appearance Clear (Clear) Urine pH 6.0 (4.5-7.5) Ur Specific [place] 1.016 (1.000-1.030) Urine Protein Negative (Negative) Urine Glucose (UA) Negative (Negative) Urine Ketones 2+ H (Negative) Urine Blood Negative (Negative) Urine Nitrite Negative (Negative) Urine Bilirubin Negative (Negative) Urine Urobilinogen Negative (Negative) Ur Leukocyte Esterase Negative (Negative) Urine Comment Nasal Screen MRSA (PCR) (Negative) Adenovirus (PCR) (NotDetected) B. pertussis DNA (PCR) (NotDetected) B.parapertussis DNA PCR (NotDetected) C. pneumoniae DNA (PCR) (NotDetected) Coronavirus OC43 (PCR) (NotDetected) Coronavirus HKU1 (PCR) (NotDetected) Coronavirus 229E (PCR) (NotDetected) SARS-CoV-2 (PCR) (NotDetected) Coronavirus NL63 (PCR) (NotDetected) Human Metapneumovir PCR (NotDetected) Influenza Type A (PCR) (NotDetected) Influenza Type B (PCR) (NotDetected) M. pneumoniae (PCR) (NotDetected) Parainfluenza 1 (PCR) (NotDetected) Parainfluenza 2 (PCR) (NotDetected) Parainfluenza 3 (PCR) (NotDetected) Parainfluenza 4 (PCR) (NotDetected) RSV (PCR) (NotDetected) Entero/Rhino (PCR) (NotDetected) 04/20/25 Range/Units 08:06 WBC 10.14 (4.8-10.8) K/ul RBC 4.95 (4.70-6.10) M/uL Hgb 14.9 (14.0-18.0) g/dl Hct 44.0 (42.0-52.0) % MCV 88.9 (80.0-100.0) fL MCH 30.1 (25.0-34.0) pg MCHC 33.9 (32.0-36.0) g/dL RDW Std Deviation 43.2 (36.4-46.3) fL RDW Coeff of Dio 13.4 (11.5-14.5) % Plt Count 136 (130-400) K/uL MPV 9.5 (9.4-12.4) fL Immature Gran % (Auto) 2.3 % Neut % (Auto) 72.0 % Lymph % (Auto) 11.6 % [place] % (Auto) 11.5 % Eos % (Auto) 1.7 % Baso % (Auto) 0.9 % Neut # (Auto) 7.30 H (1.40-6.50) K/uL Lymph # (Auto) 1.18 L (1.20-3.40) K/uL [place] # (Auto) 1.17 H (0.11-0.59) K/uL Eos # (Auto) 0.17 (0.00-0.50) K/uL Baso # (Auto) 0.09 (0.00-0.20) K/uL Immature Gran # (Auto) 0.23 H (0.01-0.20) K/uL Sodium 132 L (136-145) mmol/L Potassium 3.7 (3.5-5.1) mmol/L Chloride 98 (98-107) mmol/L Carbon Dioxide 25 (21-32) mmol/L Anion Gap 9 (3-11) BUN 16 (6-23) mg/dl Creatinine 1.20 (0.6-1.4) mg/dl Est Cr Clr Drug Dosing 41.5 ml/min eGFR 59.26 BUN/Creatinine Ratio 13.3 (10-20) Glucose 80 (70-99(Fasting)) mg/dl POC Glucose (70-99) mg/dl Lactate (0.4-2.0) mmol/L Calcium 8.4 L (8.6-10.3) mg/dl Magnesium 1.8 (1.7-2.4) mg/dl Total Bilirubin 2.2 H (0.2-1.0) mg/dl Direct Bilirubin 0.4 H (0-0.2) mg/dl AST 21 (13-39) U/L ALT 16 (7-52) U/L Alkaline Phosphatase 38 (34-104) U/L Troponin I High Sens 7.4 (0-20) pg/ml Total Protein 5.6 L (6.0-8.3) gm/dl Albumin 3.3 L (3.4-5.0) gm/dl Globulin (2.5-4.0) gm/dl Albumin/Globulin Ratio (0.9-2) Procalcitonin 0.34 (0-0.5) ng/ml TSH < 0.010 L (0.300-4.500) uIu/ml Free T4 1.06 (0.61-1.60) ng/dl Random Cortisol 4.81 mcg/dl Urine Color Urine Appearance (Clear) Urine pH (4.5-7.5) Ur Specific [place] (1.000-1.030) Urine Protein (Negative) Urine Glucose (UA) (Negative) Urine Ketones (Negative) Urine Blood (Negative) Urine Nitrite (Negative) Urine Bilirubin (Negative) Urine Urobilinogen (Negative) Ur Leukocyte Esterase (Negative) Urine Comment Nasal Screen MRSA (PCR) (Negative) Adenovirus (PCR) (NotDetected) B. pertussis DNA (PCR) (NotDetected) B.parapertussis DNA PCR (NotDetected) C. pneumoniae DNA (PCR) (NotDetected) Coronavirus OC43 (PCR) (NotDetected) Coronavirus HKU1 (PCR) (NotDetected) Coronavirus 229E (PCR) (NotDetected) SARS-CoV-2 (PCR) (NotDetected) Coronavirus NL63 (PCR) (NotDetected) Human Metapneumovir PCR (NotDetected) Influenza Type A (PCR) (NotDetected) Influenza Type B (PCR) (NotDetected) M. pneumoniae (PCR) (NotDetected) Parainfluenza 1 (PCR) (NotDetected) Parainfluenza 2 (PCR) (NotDetected) Parainfluenza 3 (PCR) (NotDetected) Parainfluenza 4 (PCR) (NotDetected) RSV (PCR) (NotDetected) Entero/Rhino (PCR) (NotDetected) Medications Administered Current Inpatient Medications Acetaminophen (Acetaminophen 325 Mg Tab) 650 mg PO Q4H PRN PRN Reason: Pain or Fever Stop: 05/20/25 14:06 Al Hydrox/Mg Hydrox/Simethicone (Aluminum/Magnesium Susp 30 Ml Udc) 15 ml PO Q4H PRN PRN Reason: Dyspepsia Stop: 05/20/25 14:06 Enoxaparin Sodium (Enoxaparin Inj 40 Mg/0.4 Ml Syr) 40 mg SQ HS EDITH Stop: 05/20/25 20:59 Last Admin: 04/20/25 20:01 Dose: 40 mg Famotidine (Famotidine 20 Mg Tab) 20 mg PO DAILY PRN PRN Reason: Heartburn Stop: 05/20/25 14:06 Sodium Chloride (Nss) 1,000 mls @ 80 mls/hr IV .[id number] EDITH Stop: 04/21/25 12:29 Last Admin: 04/21/25 01:07 Dose: 80 mls/hr Remdesivir 100 mg/ Sodium (Chloride) 250 mls @ 250 mls/hr IV Q24H EDITH Stop: 04/22/25 13:59 Hydrocortisone Sodium (Succinate 50 mg/ Syringe) 1 mls @ 4 mls/min IV Q8H [facility] Stop: 05/20/25 19:59 Last Admin: 04/21/25 05:25 Dose: 4 mls/min Levothyroxine Sodium (Levothyroxine Sodium 100 Mcg Tablet) 100 mcg PO DAILYBB [facility] Stop: 05/21/25 06:29 Last Admin: 04/21/25 05:25 Dose: 100 mcg Melatonin (Melatonin 3 Mg Tab) 3 mg PO HS PRN PRN Reason: Sleep Stop: 05/20/25 14:06 Miscellaneous (*Testosterone Gel*Order Awaiting Action) 1 each N/A QS [facility] Stop: 05/21/25 00:00 Last Admin: 04/20/25 23:20 Dose: Not Given Ondansetron HCl (Ondansetron Inj 2 Mg/Ml 2 Ml Vial) 4 mg IV Q6H PRN PRN Reason: Nausea Stop: 05/20/25 14:06 Polyethylene Glycol (Polyethylene (Miralax) 17 Gm Pack) 17 gm PO DAILY PRN PRN Reason: Constipation Stop: 05/20/25 14:06 Vitamin D (Cholecalciferol 25 Mcg (1000 Units) Tab) 50 mcg PO DAILY [facility] Stop: 05/21/25 08:59
[2025-04-21] MEDS: CHOLECALCIFEROL 25 MCG (1000 UNITS) TAB PO SCH (10:16)
[2025-04-21] MEDS: REMDESIVIR 100 MG in SODIUM CHLORIDE 0.9% 230 ML IV SCH (13:44)
[2025-04-22 11:28] LABS: Hematocrit (blood only) 44.7 % (42.0-52.0); Hemoglobin 14.7 g/dl (14.0-18.0); Mean Corpuscular Hemoglobin 28.9 pg (25.0-34.0); Mean Corpuscular Volume 87.8 fL (80.0-100.0); Platelet Count 216 K/uL (130-400); RDW Standard Deviation 43.3 fL (36.4-46.3); Red Blood Count 5.09 M/uL (4.70-6.10); White Blood Count 13.21 K/ul (4.8-10.8)
[2025-04-22 11:41] LABS: Alanine Aminotransferase 17.0 U/L (7-52); Albumin Globulin Ratio 1.5 (0.9-2); Alkaline Phosphatase 42.0 U/L (34-104); Anion Gap 7.0 (3-11); Bilirubin,Total 0.8 mg/dl (0.2-1.0); Blood Urea Nitrogen 27.0 mg/dl (6-23); Calcium 9.1 mg/dl (8.6-10.3); Carbon Dioxide 29.0 mmol/L (21-32); Chloride 106.0 mmol/L (98-107); Creatinine Clr Calc Pharmacy 45.3 ml/min; Globulin 2.4 gm/dl (2.5-4.0); Glucose 97.0 mg/dl (70-99(Fasting)); Magnesium 2.4 mg/dl (1.7-2.4); Potassium 3.6 mmol/L (3.5-5.1); Sodium 142.0 mmol/L (136-145); Total Protein 6.0 gm/dl (6.0-8.3)
[2025-04-22] MEDS: POTASSIUM PHOSPHATE 6 MMOL in SODIUM CHLORIDE 0.9% 100 ML IV ONE (13:27)
[2025-04-22] MEDS: POTASSIUM PHOS 3 MMOL/1 ML INFUSION IV STA (14:10)
--- NOTE | 2025-04-22 19:03 | Hospitalist Progress Note ---
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 Metabolic encephalopathy 2/2 covid, dehydration and adrenal insuff Sars COV-2 positive (outpt home test on 04/18 +) Adrenal insufficiency in setting of underlying illness and chronic pred therapy Dehydration Generalized weakness admitted to medical stopped oral paxlovid and started IV remdesivir on admission given age held oral prednisone and started stress dose steroid hydrocortisone 50mg IV q8, random cortisol at 8:06 a.m. was low at 4.81 received gentle IVF decrease hydrocortisone to q12h PT/OT ordered Head CT given encephalopathy - negative Hypothyroidism PanHypopituitarism TSH < 0.01, free T4 w/in range - will need repeat testing when not ill in appox 2 weeks after discharge continue levothyroxine, testosterone and IV hydrocortisone Acute hyponatremia Na 132, suspect in setting of volume completion IVF given on admission, current Na 142 CKD-3 chronic, stable, Cr at baseline 1.2, avoid nephrotoxic agents Mild protein calorie malnutrition consult bone density technician DVT ppx: SQ Lovenox DNR/DNI Dispo: med/surg PCP: Dr. Edwards Admission and Anticipated Discharge Date Admission Date: April 20, 2025 Subjective Pt seen in follow up of confusion and + COVID Currently pt is sitting up in chair in NAD He is on RA and appears comfortable Denies any fever, chills, chest pain, shortness of breath or cough. denies any abd.pain. I was told by RN that his was visiting last night but pt did not recall that. he sais he talked to his though. I called pt's and left 2 messages, will try to call her again tmrw. Review of Systems Review of Systems: All systems reviewed & are unremarkable except as noted in Subjective Physical Exam Physical Exam: General : WD/WN elderly M in NAD CV: normal rate, regular rhythm, no murmurs Respiratory: clear breath sounds bilaterally Abdomen: non distended, soft, nontender LEs: no bipedal edema, erythema, warmth Neuro: speech fluent, no facial asymmetry, moves extremities, able to answer some questions appropriately but does not remember his visited him last night Results & Data Results & Data Vital Signs (Past 12 Hours) Vital Signs Temp Pulse Resp BP Pulse Ox O2 Del Method 04/22/25 15:51 36.5 C 80 20 123/81 98 Room Air 04/22/25 08:12 36.4 C L 96 H 16 102/66 96 Room Air Laboratory Results 04/22/25 Range/Units 10:55 WBC 13.21 H (4.8-10.8) K/ul RBC 5.09 (4.70-6.10) M/uL Hgb 14.7 (14.0-18.0) g/dl Hct 44.7 (42.0-52.0) % MCV 87.8 (80.0-100.0) fL MCH 28.9 (25.0-34.0) pg MCHC 32.9 (32.0-36.0) g/dL RDW Std Deviation 43.3 (36.4-46.3) fL RDW Coeff of Dio 13.5 (11.5-14.5) % Plt Count 216 (130-400) K/uL MPV 10.0 (9.4-12.4) fL Sodium 142 (136-145) mmol/L Potassium 3.6 (3.5-5.1) mmol/L Chloride 106 (98-107) mmol/L Carbon Dioxide 29 (21-32) mmol/L Anion Gap 7 (3-11) BUN 27 H (6-23) mg/dl Creatinine 1.10 (0.6-1.4) mg/dl Est Cr Clr Drug Dosing 45.3 ml/min eGFR 65.79 BUN/Creatinine Ratio 24.5 H (10-20) Glucose 97 (70-99(Fasting)) mg/dl Calcium 9.1 (8.6-10.3) mg/dl Phosphorus 1.8 L (2.5-4.9) mg/dl Magnesium 2.4 (1.7-2.4) mg/dl Total Bilirubin 0.8 (0.2-1.0) mg/dl AST 26 (13-39) U/L ALT 17 (7-52) U/L Alkaline Phosphatase 42 (34-104) U/L Total Protein 6.0 (6.0-8.3) gm/dl Albumin 3.6 (3.4-5.0) gm/dl Globulin 2.4 L (2.5-4.0) gm/dl Albumin/Globulin Ratio 1.5 (0.9-2) Medications Administered Current Inpatient Medications Acetaminophen (Acetaminophen 325 Mg Tab) 650 mg PO Q4H PRN PRN Reason: Pain or Fever Stop: 05/20/25 14:06 Al Hydrox/Mg Hydrox/Simethicone (Aluminum/Magnesium Susp 30 Ml Udc) 15 ml PO Q4H PRN PRN Reason: Dyspepsia Stop: 05/20/25 14:06 Enoxaparin Sodium (Enoxaparin Inj 40 Mg/0.4 Ml Syr) 40 mg SQ HS EDITH Stop: 05/20/25 20:59 Last Admin: 04/21/25 20:08 Dose: 40 mg Famotidine (Famotidine 20 Mg Tab) 20 mg PO DAILY PRN PRN Reason: Heartburn Stop: 05/20/25 14:06 Hydrocortisone Sodium (Succinate 50 mg/ Syringe) 1 mls @ 4 mls/min IV Q8H EDITH Stop: 05/20/25 19:59 Last Admin: 04/22/25 12:10 Dose: 4 mls/min Levothyroxine Sodium (Levothyroxine Sodium 100 Mcg Tablet) 100 mcg PO DAILYBB [facility] Stop: 05/21/25 06:29 Last Admin: 04/22/25 05:46 Dose: 100 mcg Melatonin (Melatonin 3 Mg Tab) 3 mg PO HS PRN PRN Reason: Sleep Stop: 05/20/25 14:06 Miscellaneous (*Testosterone Gel*Order Awaiting Action) 1 each N/A QS [facility]ITH Stop: 05/21/25 00:00 Last Admin: 04/22/25 16:09 Dose: Not Given Ondansetron HCl (Ondansetron Inj 2 Mg/Ml 2 Ml Vial) 4 mg IV Q6H PRN PRN Reason: Nausea Stop: 05/20/25 14:06 Polyethylene Glycol (Polyethylene (Miralax) 17 Gm Pack) 17 gm PO DAILY PRN PRN Reason: Constipation Stop: 05/20/25 14:06 Vitamin D (Cholecalciferol 25 Mcg (1000 Units) Tab) 50 mcg PO DAILY ED[facility] Stop: 05/21/25 08:59 Last Admin: 04/22/25 09:11 Dose: 50 mcg
[2025-04-22] MEDS: HYDROCORTISONE SOD 50 MG in SYRINGE 0 ML IV SCH (20:12)
[2025-04-22] MEDS: MELATONIN 3 MG TAB PO PRN (21:41)
[2025-04-23 06:56] LABS: Hematocrit (blood only) 37.7 % (42.0-52.0); Hemoglobin 12.6 g/dl (14.0-18.0); Mean Corpuscular Hemoglobin 29.9 pg (25.0-34.0); Mean Corpuscular Volume 89.3 fL (80.0-100.0); Platelet Count 187 K/uL (130-400); RDW Standard Deviation 43.5 fL (36.4-46.3); Red Blood Count 4.22 M/uL (4.70-6.10); White Blood Count 7.84 K/ul (4.8-10.8)
[2025-04-23 07:16] LABS: Alanine Aminotransferase 15.0 U/L (7-52); Anion Gap 5.0 (3-11); Blood Urea Nitrogen 24.0 mg/dl (6-23); Calcium 8.5 mg/dl (8.6-10.3); Carbon Dioxide 27.0 mmol/L (21-32); Chloride 111.0 mmol/L (98-107); Creatinine Clr Calc Pharmacy 47.9 ml/min; Glucose 93.0 mg/dl (70-99(Fasting)); Magnesium 2.2 mg/dl (1.7-2.4); Potassium 4.0 mmol/L (3.5-5.1); Sodium 143.0 mmol/L (136-145)
--- NOTE | 2025-04-23 12:17 | Hospitalist Progress Note ---
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 Metabolic encephalopathy 2/2 covid, dehydration and adrenal insuff Sars COV-2 positive (outpt home test on 04/18 +) Adrenal insufficiency in setting of underlying illness and chronic pred therapy Dehydration Generalized weakness admitted to medical stopped oral paxlovid and started IV remdesivir on admission given age held oral prednisone and started stress dose steroid hydrocortisone 50mg IV q8, random cortisol at 8:06 a.m. was low at 4.81 received gentle IVF decrease hydrocortisone to q12h PT/OT ordered Head CT given encephalopathy - negative Hypothyroidism PanHypopituitarism TSH < 0.01, free T4 w/in range - will need repeat testing when not ill in appox 2 weeks after discharge continue levothyroxine, testosterone and IV hydrocortisone Acute hyponatremia Na 132, suspect in setting of volume completion IVF given on admission, current Na 143 CKD-3 chronic, stable, Cr at baseline 1.2, avoid nephrotoxic agents Mild protein calorie malnutrition consult industrial machine system technician DVT ppx: SQ Lovenox DNR/DNI Dispo: med/surg PCP: Dr. Edwards Admission and Anticipated Discharge Date Admission Date: April 20, 2025 Subjective Pt seen in follow up of confusion and + COVID Currently pt is sitting up in chair in NAD, all dressed He is on RA and appears comfortable Denies any fever, chills, chest pain, shortness of breath or cough. denies any abd.pain. Talked to on the phone, in pt's room. She feels he is is still somewhat confused, not back to his baseline yet but improved. She plans to visit him this evening. Agreed to discuss tomorrow if ok to DC home with her then. Says at home he was not eating, drinking , able to walk after getting COVID. Per RN pt is eating and doing fairly well. Will continue to monitor closely. Review of Systems Review of Systems: All systems reviewed & are unremarkable except as noted in Subjective Physical Exam Physical Exam: General : WD/WN elderly M in NAD CV: normal rate, regular rhythm, no murmurs Respiratory: clear breath sounds bilaterally Abdomen: non distended, soft, nontender LEs: no bipedal edema, erythema, warmth Neuro: speech fluent, no facial asymmetry, moves extremities, able to answer some questions appropriately, moves extremities Results & Data Results & Data Vital Signs (Past 12 Hours) Vital Signs Temp Pulse Resp BP Pulse Ox O2 Del Method 04/23/25 07:55 93/58 L 04/23/25 07:09 36.4 C L 62 16 94/59 L 97 Room Air Laboratory Results 04/23/25 Range/Units 05:26 WBC 7.84 (4.8-10.8) K/ul RBC 4.22 L (4.70-6.10) M/uL Hgb 12.6 L (14.0-18.0) g/dl Hct 37.7 L (42.0-52.0) % MCV 89.3 (80.0-100.0) fL MCH 29.9 (25.0-34.0) pg MCHC 33.4 (32.0-36.0) g/dL RDW Std Deviation 43.5 (36.4-46.3) fL RDW Coeff of Dio 13.2 (11.5-14.5) % Plt Count 187 (130-400) K/uL MPV 10.6 (9.4-12.4) fL Sodium 143 (136-145) mmol/L Potassium 4.0 (3.5-5.1) mmol/L Chloride 111 H (98-107) mmol/L Carbon Dioxide 27 (21-32) mmol/L Anion Gap 5 (3-11) BUN 24 H (6-23) mg/dl Creatinine 1.04 (0.6-1.4) mg/dl Est Cr Clr Drug Dosing 47.9 ml/min eGFR 70.37 BUN/Creatinine Ratio 23.1 H (10-20) Glucose 93 (70-99(Fasting)) mg/dl Calcium 8.5 L (8.6-10.3) mg/dl Phosphorus 2.4 L (2.5-4.9) mg/dl Magnesium 2.2 (1.7-2.4) mg/dl AST 20 (13-39) U/L ALT 15 (7-52) U/L Medications Administered Current Inpatient Medications Acetaminophen (Acetaminophen 325 Mg Tab) 650 mg PO Q4H PRN PRN Reason: Pain or Fever Stop: 05/20/25 14:06 Al Hydrox/Mg Hydrox/Simethicone (Aluminum/Magnesium Susp 30 Ml Udc) 15 ml PO Q4H PRN PRN Reason: Dyspepsia Stop: 05/20/25 14:06 Enoxaparin Sodium (Enoxaparin Inj 40 Mg/0.4 Ml Syr) 40 mg SQ HS EDITH Stop: 05/20/25 20:59 Last Admin: 04/22/25 20:12 Dose: 40 mg Famotidine (Famotidine 20 Mg Tab) 20 mg PO DAILY PRN PRN Reason: Heartburn Stop: 05/20/25 14:06 Hydrocortisone Sodium (Succinate 50 mg/ Syringe) 1 mls @ 4 mls/min IV Q12H EDITH Stop: 05/22/25 19:14 Last Admin: 04/23/25 07:22 Dose: 4 mls/min Levothyroxine Sodium (Levothyroxine Sodium 100 Mcg Tablet) 100 mcg PO DAILYBB [facility] Stop: 05/21/25 06:29 Last Admin: 04/23/25 06:25 Dose: 100 mcg Melatonin (Melatonin 3 Mg Tab) 3 mg PO HS PRN PRN Reason: Sleep Stop: 05/20/25 14:06 Last Admin: 04/22/25 21:41 Dose: 3 mg Ondansetron HCl (Ondansetron Inj 2 Mg/Ml 2 Ml Vial) 4 mg IV Q6H PRN PRN Reason: Nausea Stop: 05/20/25 14:06 Polyethylene Glycol (Polyethylene (Miralax) 17 Gm Pack) 17 gm PO DAILY PRN PRN Reason: Constipation Stop: 05/20/25 14:06 Vitamin D (Cholecalciferol 25 Mcg (1000 Units) Tab) 50 mcg PO DAILY EDITH Stop: 05/21/25 08:59 Last Admin: 04/23/25 07:22 Dose: 50 mcg
--- NOTE | 2025-04-24 05:36 | Electrocardiogram Report ---
Test Reason : Blood Pressure : */* mmHG Vent. Rate : 100 BPM Atrial Rate : 100 BPM P-R Int : 178 ms QRS Dur : 74 ms QT Int : 334 ms P-R-T Axes : 59 59 81 degrees QTcB Int : 430 ms Normal sinus rhythm Normal ECG When compared with ECG of 26-Jul-2024 23:49, No significant change was found Confirmed by Getachew Wiseman ([id number] on 04/24/2025 5:36:17 AM Referred By: Confirmed By: Getachew Wiseman
[2025-04-24 07:52] LABS: Hematocrit (blood only) 41.4 % (42.0-52.0); Hemoglobin 13.5 g/dl (14.0-18.0); Mean Corpuscular Hemoglobin 29.3 pg (25.0-34.0); Mean Corpuscular Volume 89.8 fL (80.0-100.0); Platelet Count 200 K/uL (130-400); RDW Standard Deviation 43.7 fL (36.4-46.3); Red Blood Count 4.61 M/uL (4.70-6.10); White Blood Count 6.86 K/ul (4.8-10.8)
[2025-04-24 08:00] VITALS: BP 109/73; PULSE 60; RESP 16; TEMP 97.3; O2SAT 98
[2025-04-24] MEDS: HYDROCORTISONE 10 MG TAB PO SCH (08:01)
[2025-04-24 08:11] LABS: Alanine Aminotransferase 18.0 U/L (7-52); Anion Gap 6.0 (3-11); Blood Urea Nitrogen 23.0 mg/dl (6-23); Calcium 8.9 mg/dl (8.6-10.3); Carbon Dioxide 27.0 mmol/L (21-32); Chloride 109.0 mmol/L (98-107); Creatinine Clr Calc Pharmacy 43.3 ml/min; Glucose 68.0 mg/dl (70-99(Fasting)); Magnesium 2.3 mg/dl (1.7-2.4); Potassium 3.7 mmol/L (3.5-5.1); Sodium 142.0 mmol/L (136-145)
--- NOTE | 2025-04-24 14:37 | Discharge Summary ---
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 Of significance patient's tested positive for for COVID and was started on Paxlovid. Patient then developed symptoms of headache, cough, decreased appetite and he tested positive on a home test on 04/18. His PCP started Paxlovid as well and was administered 3 doses. History obtained from ED provider, external chart review and attending physician discussion with patient's . Hx unobtainable from patient due to confusion. Admission Exam Per Admitting Provider oriented x 2 ,weak, needing 2 RNs to assist him in using the urinal, not in distress, speaks in sentences with no effort nor accessory muscle use normal rate, regular rhythm, no murmurs clear breath sounds bilaterally non distended, soft, nontender no bipedal edema, erythema, warmth no neuro deficits Principal Diagnosis Metabolic encephalopathy, + COVID infection Discharge Exam General : WD/WN elderly M in NAD CV: normal rate, regular rhythm, no murmurs Respiratory: clear breath sounds bilaterally Abdomen: non distended, soft, nontender LEs: no LEs edema, pt is moving extremities Neuro: speech fluent, no facial asymmetry, moves extremities, able to answer questions appropriately, moves extremities Discharge Data Allergies Allergy/AdvReac Type Severity Reaction Status Date / Time eugenol Allergy Unknown unkn Verified 04/20/25 09:25 zinc oxide Allergy Unknown unkn Verified 04/20/25 09:25 Consultations 04/20/25 11:17 ED Decision to Admit Stat Ordered Studies 04/20/25 12:04 CT head/brain wo con Stat FINDINGS: No intracranial hemorrhage seen. No mass effect or midline shift. There is stable mild prominence of the ventricles out of proportion to sulci, cerebral atrophy versus normal pressure hydrocephalus. Stable mild chronic small vessel ischemic changes. There is mucosal thickening at the sphenoid and ethmoid sinuses. No mastoid effusion. No skull fracture seen. IMPRESSION: No acute findings. 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 Metabolic encephalopathy 2/2 covid, dehydration and adrenal insuff Sars COV-2 positive (outpt home test on 04/18 +) Adrenal insufficiency in setting of underlying illness and chronic pred therapy Dehydration Generalized weakness admitted to medical Head CT given encephalopathy - negative stopped oral paxlovid and started IV remdesivir on admission given age held oral prednisone and started stress dose steroid hydrocortisone 50mg IV q8, random cortisol at 8:06 a.m. was low at 4.81 received gentle IVF decrease hydrocortisone to q12h -> will DC pt on prednisone taper, then he can resume his daily 7.5mg dose PT/OT ordered - pt doing well w/ PT including stairs, recommend return home Hypothyroidism PanHypopituitarism TSH < 0.01, free T4 w/in range - will need repeat testing when not ill in appox 2 weeks after discharge continue levothyroxine, testosterone and IV hydrocortisone Acute hyponatremia Na 132, suspect in setting of volume completion IVF given on admission, current Na 142 CKD-3 chronic, stable, Cr at baseline 1.2, avoid nephrotoxic agents Mild protein calorie malnutrition 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 Total Time Total Time Spent Total Time Spent (In Minutes): 40 Discharge Plan Discharge Items Patient Disposition: Home - Self-Care Reason For Visit: METABOLIC ENCEPALOPATHY,COVID Discharge Diagnosis: Metabolic encephalopathy, + COVID infection Condition on Discharge: Fair Activity: Per Instructions section Non-emergency contact: Primary Care Provider Call non-emergency contact if: you have any medication questions and your symptoms worsen Follow-up/Referrals: Rodolfo Edwards MD [Primary Care Provider] - Diet: Regular Diet Texture: Easy to Chew Addtl Attending Provider Instructions: Follow up with your primary care physician within 1 week. Make sure to stay well hydrated. Take prednisone 30 mg (3 tabs) for next 2 days, then 20 mg (2 tabs) for next 2 days, then 10 mg (1 tab) for 2 days and then go back to your regular dose of 7.5 mg daily. Pending Studies at Discharge: Yes Studies:: final blood cultx results Stand-Alone Forms: [employer], Smoking Cessation Medications and DC Order Prescriptions: Continued calcium carbonate 500 mg calcium (1,250 mg) tablet 500 mg PO DAILY PRN (Reason: Acid Reflux) cholecalciferol (vitamin D3) 50 mcg (2,000 unit) capsule 2,000 unit PO DAILY aspirin 81 mg tablet,delayed release (DR/EC) 81 mg PO BID PRN (Reason: Pain) loratadine 10 mg tablet 10 mg PO QAM PRN (Reason: allergies) levothyroxine 100 mcg tablet 100 mcg PO QAM Patient Comments: take 30 min before eating with a glass of water testosterone 20.25 mg/1.25 gram (1.62 %) gel in metered-dose pump 1 pump topical HS Patient Comments: Pt usually takes at night, but since he missed his 04/19/25 dose the spouse applied it on the morning of 04/20/25 Held prednisone 5 mg tablet 7.5 mg PO QAM Qty: 135 1RF Hold Instructions: Resume on 05/01/25. resume after you finish prednisone taper Discontinued Paxlovid 150 mg (10)- 100 mg (10) tablets,dose pack See Rx Instructions .ROUTE .COMPLEX Rx Instructions: Start Date 04/18/25: Take 2 tabs by mouth twice daily as directed on package instruction. As of 04/20/25 pt has only taken 3 doses Discharge Orders: Discharge Order (Routine); Ordered 04/24/25 Ordered By: Joaquin Santamaria Admission Data Admit Date/Time: 04/20/25 11:20 Attending Provider: Joaquin Santamaria Admit Provider: Lb Mehta Primary Care Provider: Rodolfo Edwards Other Providers: Lb Mehta
== END 2025-04-24 16:44 | disposition home or self-care (01) | DRG 177 ==
LOC: ED 07:54 → SUATTDRO 11:20 → EDINP 11:20 → 3E 14:07